=== PATIENT | female | born 1970 | race Caucasian/White ===

== ENCOUNTER 2024-07-13 11:38 | Emergency (ER) | payer MEDICAID ==
[~2024-07-13] VITALS: Ht 157.5 cm; Wt 77.3 kg
[~2024-07-13 11:38] MED LIST: NABU-72 PO
[2024-07-13 13:08] VITALS: BP 120/87; PULSE 85; RESP 18; TEMP 98.9; O2SAT 99
== END 2024-07-13 13:21 | disposition home or self-care (01) ==
LOC: ER 11:38
DX: S01.112A Laceration without foreign body of left eyelid and periocular area, initial encounter (principal); Z88.5 Allergy status to narcotic agent; Z79.899 Other long term (current) drug therapy; W22.8XXA Striking against or struck by other objects, initial encounter; Y93.89 Activity, other specified; Y92.89 Other specified places as the place of occurrence of the external cause; Y99.8 Other external cause status